=== PATIENT | male | born 1965 | race Caucasian/White ===

== ENCOUNTER 2018-11-22 09:00 | Emergency (ER) | payer BC ==
--- NOTE | 2018-11-22 09:35 | PDOC ---
History of Present Illness - General Chief Complaint: Urinary Problem Stated Complaint: KIDNEY STONE Time Seen by Provider: 11/22/18 09:23 History Source: Patient Exam Limitations: No Limitations - History of Present Illness Initial Comments: 11/22/18 09:34 Pt is a 53yo M with PMH of kidney stones presenting to ED with complaints of a kidney stone stuck in the urethra. Pt states that at least for the past 24 hours he felt as if the stone was stuck in his urethra and preventing urine from coming out. Pt states that when he uses the bathroom, he has to "push hard " and "drips come out". Endorses hematuria and pain in the urethra. He denies fevers, chills, flank pain, abdominal pain, n/v/d. PMD: none PMH: see hpi PSH: none Meds: none Allergies: nkda Social: denies Past History - Past Medical History Allergies/Adverse Reactions: Allergies Allergy/AdvReac Type Severity Reaction Status Date / Time No Known Allergies Allergy Verified 11/22/18 09:39 Home Medications: Ambulatory Orders Phenazopyridine HCl [Pyridium -] 100 mg PO PRN PRN 11/22/18 Sulfamethoxazole/Trimethoprim [Bactrim Ds -] 1 tab PO BID #14 tablet 11/22/18 Tamsulosin HCl [Flomax] 0.4 mg PO DAILY #5 capsule 11/22/18 Review of Systems - Review of Systems Constitutional: No: Chills, Fever HEENTM: No: Symptoms Reported Respiratory: No: Cough, Shortness of Breath Cardiac (ROS): No: Chest Pain, Lightheadedness, Palpitations, Syncope ABD/GI: No: Abdominal Distended, Constipated, Diarrhea, Nausea, Vomiting, Abdominal cramping : Yes: See HPI, Hematuria, Pain. No: Burning, Dysuria, Flank Pain, Urgency, Testicular Swelling, Testicular Pain Musculoskeletal: No: Back Pain, Joint Pain, Muscle Pain Integumentary: No: Symptoms Reported Neurological: No: Headache, Numbness, Tingling *Physical Exam - Physical Exam General Appearance: Yes: Nourished, Appropriately Dressed. No: Apparent Distress HEENT: positive: EOMI, RITCHIE, Thrush Neck: positive: Trachea midline. negative: Lymphadenopathy (R), Lymphadenopathy (L) Respiratory/Chest: positive: Lungs Clear, Normal Breath Sounds. negative: Crackles, Rales, Rhonchi, Stridor, Wheezing Cardiovascular: positive: Regular Rhythm, Regular Rate, S1, S2. negative: Edema , JVD, Murmur Vascular Pulses: Carotid (R): 2+, Carotid (L): 2+, Dorsalis-Pedis (R): 2+, Doralis-Pedis (L): 2+ Gastrointestinal/Abdominal: positive: Normal Bowel Sounds, Soft. negative: Distended, Guarding, Rebound, Tenderness Male Genitalia: positive: normal genitalia. negative: discharge, testicular tenderness, testicular mass Musculoskeletal: negative: CVA Tenderness (R), CVA Tenderness (L), Vertebral Tenderness Extremity: positive: Normal Capillary Refill. negative: Coldness, Cyanosis, Pedal Edema, Swelling Integumentary: positive: Normal Color, Dry, Warm Neurologic: positive: mobile sales assistant II-XII NML intact, Fully Oriented, Alert, Normal Mood/ Affect, Normal Response, Motor Strength 02/17 ED Treatment Course - LABORATORY CBC & Chemistry Diagram: 11/22/18 09:30 11/22/18 09:30 Medical Decision Making - Medical Decision Making 11/22/18 09:40 Pt is a 53yo M with PMH of kidney stones presenting to ED with complaints of a kidney stone stuck in the urethra. Pt states that at least for the past 24 hours he felt as if the stone was stuck in his urethra and preventing urine from coming out. Pt states that when he uses the bathroom, he has to "push hard " and "drips come out". Endorses hematuria and pain in the urethra. He denies fevers, chills, flank pain, abdominal pain, n/v/d. Vitals: PE: No flank tenderness, no abdominal tenderness, normal urethral meatus Pt most likely has stone in the urethra. Pt has had stones in the past and states that this pain is different due to pain in the urethra. Will give fluids, IV toradol. ua, ucx. spiral CT Stone removal attempted at bedside. Pt given urogel and morphine. Iv fluids. Stone felt with instruments and pieces broke off. Pt attempted to urinate and stone came out. 1mm. pieces of stone broken off earlier sent for analysis. CT- stone in urethra. Will dc with flomax and bactrim. Uro follow up given. Given strict return precautions *DC/Admit/Observation/Transfer Diagnosis at time of Disposition: Urethral calculus - Discharge Dispostion Disposition: HOME Condition at time of disposition: Improved Decision to Admit order: No - Prescriptions Prescriptions: Sulfamethoxazole/Trimethoprim [Bactrim Ds -] 1 tab PO BID #14 tablet Tamsulosin HCl [Flomax] 0.4 mg PO DAILY #5 capsule - Referrals Referrals: Chaparro Penn MD [Staff Physician] - - Patient Instructions Printed Discharge Instructions: Kidney Stones -- Adult Additional Instructions: You were seen in the emergency room today for a kidney stone. It was stuck in the urethra. The stone dislodged! You may have another stone in the urethra but it should not get stuck this time. I highly recommend that you see a urologist for further evaluation and management of the recurrent stones you keep having. Try to schedule an appointment this week or early next week. Dr. Penn Address: [address] [place] [address] A prescription for an antibiotic and Flomax was sent to your pharmacy. Please take as directed. Stop taking if you develop a rash. You can take ibuprofen for pain as needed. Keep yourself well hydrated! Come back to the emergency room if pain worsens, you are unable to urinate, the penis looks more swollen than usual, you urinate blood or if any new concerning symptom develops. Thank you - Post Discharge Activity
[2018-11-22] MEDS ORDERED: KETOROLAC TROMETHAMINE 30 MG/1 ML VIAL IVPUSH ONE (09:39)
[2018-11-22] MEDS ORDERED: SODIUM CHLORIDE 1,000 ML IV STA (09:39)
[2018-11-22] MEDS ORDERED: KETOROLAC TROMETHAMINE 30 MG/1 ML VIAL ONE (09:46)
[2018-11-22 09:47] VITALS: BP 132/95; PULSE 89; TEMP 98; BMI 26.8
[2018-11-22 09:56] LABS: BASO % 0.2 % (0-2.0); EOS % 4.5 % (0-4.5); HEMATOCRIT 40.3 % (35.4-49); HEMOGLOBIN 13.4 GM/dl (11.7-16.9); LYMPH % 17.2 % (8-40); MCH 30.6 pg (25.7-33.7); MCHC 33.2 g/dl (32.0-35.9); MONO % 3.9 % (3.8-10.2); NEUT % 74.2 % (42.8-82.8); PLATELET COUNT 250 K/MM3 (134-434); RBC 4.38 M/mm3 (4.00-5.60); RDW 12.4 % (11.9-15.9); WHITE BLOOD COUNT 7.2 K/mm3 (4.0-10.8)
[2018-11-22 10:00] LABS: ALBUMIN 4.1 g/dl (3.4-5.0); ALK PHOS 40 U/L (45-117); ANION GAP 5 MMOL/L (8-16); BILIRUBIN,TOTAL 0.6 mg/dl (0.2-1); BLOOD UREA NITROGEN 17 mg/dl (7-18); CALCIUM 8.8 mg/dl (8.5-10); CHLORIDE 105 mmol/L (98-107); CO2 24 mmol/L (21-32); CREATININE 0.9 mg/dl (0.55-1.3); GLUCOSE,RANDOM 106 mg/dl (74-106); SGOT/AST 30 U/L (15-37); SGPT/ALT 24 U/L (13-61); SODIUM 134 mmol/L (136-145); TOT PROT 6.7 g/dl (6.4-8.2)
[2018-11-22] MEDS ORDERED: LIDOCAINE HCL 2% 100 MG/5 ML DISP.SYRIN ONE (10:35)
[2018-11-22] MEDS ORDERED: morphine SULFATE 4 MG/ML VIAL ONE (10:35)
[2018-11-22] MEDS ORDERED: LIDOCAINE HCL 2% JELLY 10 ML CARTRIDGE ONE ×2 (10:36→11:33)
[2018-11-22 11:08] LABS: URINE APPEARANCE Slightly; URINE BILIRUBIN Negative (NEGATIVE); URINE COLOR Orange; URINE GLUCOSE (UA) Trace (NEGATIVE); URINE KETONE Negative (NEGATIVE); URINE LEUK ESTERASE 1+ (NEGATIVE); URINE PROTEIN 1+ (NEGATIVE)
[2018-11-22] MEDS ORDERED: LIDOCAINE HCL 2% JELLY 10 ML CARTRIDGE UR ONE (11:17)
[2018-11-22] MEDS ORDERED: SODIUM CHLORIDE 0.9% 500 ML INFUS.BAG IV ONE (11:17)
[2018-11-22] MEDS ORDERED: morphine CARPU-JECT 4 MG/1 ML DISP.SYRIN IVPUSH ONE (11:17)
[2018-11-22 12:34] LABS: URINE NITRITE Positive (NEGATIVE); URINE RBC >100 /hpf (0-3)
[2018-11-22] MEDS ORDERED: TAMSULOSIN HCL 0.4 MG CAP PO ONE (13:45)
[2018-11-22] MEDS ORDERED: TAMSULOSIN HCL 0.4 MG CAP ONE (13:47)
== END 2018-11-22 13:53 | disposition home or self-care (01) ==
LOC: FER 09:00
PROC: 0VCSXZZ Extirpation of Matter from Penis, External Approach (ICD-10-PCS; principal; 2018-11-22)
PROC: 3E0337Z Introduction of Electrolytic and Water Balance Substance into Peripheral Vein, Percutaneous Approach (ICD-10-PCS; 2018-11-22)
PROC: 3E0333Z Introduction of Anti-inflammatory into Peripheral Vein, Percutaneous Approach (ICD-10-PCS; 2018-11-22)
DX: N21.1 Calculus in urethra (principal); Z87.442 Personal history of urinary calculi
CPT/HCPCS: 36415; 74176; 80053; 81003; 81015; 82360; 85025; 87086; 99283-25; J7030